=== PATIENT | female | born 1990 | race Caucasian/White ===

== ENCOUNTER 2017-05-05 15:59 | Outpatient (CLI) | payer OTHER ==
--- NOTE | 2017-05-05 17:14 | DIAGNOSTIC IMAGING REPORT ---
PROCEDURE: US COMPLETE PELVIC W/TRANSVAG INDICATION: PELVIC PAIN TECHNIQUE: Transabdominal and endovaginal plascencia scale and color Doppler sonographic images of the female pelvis were obtained. COMPARISON: None. FINDINGS: TRANSABDOMINAL SCANS: The uterus is of normal size 6 x 3.4 x 5.6 cm Kidneys are normal. TRANSVAGINAL SCANS: The uterus is anteverted. Myometrium is normal. The endometrium measures 6.9 mm. Right ovary is measuring 4.6 x 4.6 x 4.5 cm and contains a 4.6 cm hemorrhagic cyst. There is also a 16 mm follicle on the right ovary. The left ovary is normal measuring 1.6 x 1.0 x 1.4 cm IMPRESSION: 1. 4.6 cm hemorrhagic cyst on the right ovary.
== END 2017-05-05 23:00 ==
LOC: US SRH 15:59
DX: N83.201 Unspecified ovarian cyst, right side (principal)